=== PATIENT | male | born 1970 | race Caucasian/White ===

== ENCOUNTER 2016-07-05 09:44 | Emergency (ER) | payer BC ==
[~2016-07-05] VITALS: Ht 175.3 cm; Wt 75.7 kg
[2016-07-05 09:52] VITALS: BP 129/98
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
[2016-07-05 11:16] VITALS: BP 129/78
== END 2016-07-05 11:15 | disposition home or self-care (01) ==
LOC: MED 09:44
DX: S31.114A Laceration without foreign body of abdominal wall, left lower quadrant without penetration into peritoneal cavity, initial encounter (principal); F17.200 Nicotine dependence, unspecified, uncomplicated; W45.8XXA Other foreign body or object entering through skin, initial encounter; Y93.89 Activity, other specified; Y92.89 Other specified places as the place of occurrence of the external cause; Y99.8 Other external cause status
CPT/HCPCS: 99283